=== PATIENT | male | born 1940 | race Hispanic/Latino ===

== ENCOUNTER 2021-07-15 11:39 | Inpatient (IN) | payer MEDICARE ==
[~2021-07-15] VITALS: Ht 167.6 cm; Wt 88.9 kg
[2021-07-15] MEDS ORDERED: SODIUM CHLORIDE 0.9% 1000ML 1,000 ML IV STA (12:09)
[2021-07-15] MEDS ORDERED: DEXAMETHASONE SOD PHOS 10 MG/1 ML VIAL IV ONE (12:15)
[2021-07-15] MEDS ORDERED: CEFTRIAXONE 1 GM in SODIUM CHLORIDE 0.9% 50ML 50 ML IV ONE (12:15)
[2021-07-15 12:26] LABS: BASOPHILS % 0.2 % (0.0-1.0); LYMPHOCYTES # (AUTO) 0.4 (1.0-3.2); LYMPHOCYTES % 3.9 % (18.0-39.1); MEAN CORPUSCULAR HEMOGLOBIN 30.7 pg (28-32); MEAN CORPUSCULAR HGB CONC 33.3 g/dL (31-35); MEAN CORPUSCULAR VOLUME 92.2 fL (81-99); MONOCYTES # (AUTO) 0.4 (0.2-0.8); MONOCYTES % 4.4 % (4.4-11.3); NEUTROPHILS % 91.1 % (38.7-80.0); PLATELET COUNT 169 x10e3/uL (140-360); RED BLOOD COUNT 4.88 x10e6/uL (4.3-5.7); RED CELL DISTRIBUTION WIDTH 13.6 % (11.7-14.4)
[2021-07-15 12:57] LABS: ALBUMIN 3.3 g/dL (3.5-5.0); ALBUMIN/GLOBULIN RATIO 0.7 (0.8-2.0); ANION GAP 20.5 mmol/L (8-16); CALCIUM 8.9 mg/dL (8.4-10.2); CREATININE, SERUM 1.44 mg/dL (0.72-1.25); POTASSIUM 3.5 mmol/L (3.5-5.1)
[2021-07-15] MEDS ORDERED: WATER STERILE 10 ML VIAL ONE (13:14)
[2021-07-15] MEDS ORDERED: VECURONIUM BROMIDE FOR INJ 20 MG VIAL ONE (13:14)
[2021-07-15] MEDS ORDERED: SUCCINYLCHOLINE CHLORIDE 20 MG/ML 10ML VIAL ONE (13:14)
[2021-07-15] MEDS ORDERED: MIDAZOLAM HCL 2 MG/2 ML VIAL ONE (13:14)
[2021-07-15] MEDS: SODIUM CHLORIDE 0.9% 1000ML 1,000 ML IV SCH ×2 (14:40→14:49)
[2021-07-15 15:15] LABS: CLARITY,URINE SL CLOUDY (CLEAR); COLOR,URINE AMBER (YELLOW); LEUKOCYTE ESTERASE ,URINE NEGATIVE (NEGATIVE); NITRITE,URINE NEGATIVE (NEGATIVE); PROTEIN,URINE DIPSTICK NEGATIVE (NEGATIVE)
[2021-07-15 15:16] LABS: KETONES,URINE NEGATIVE (NEGATIVE); URINE UROBILINOGEN 1 mg/dL (0.2 - 1)
[2021-07-15 15:28] LABS: AMORPHOUS SEDIMENT,URINE FEW (FEW); BACTERIA,URINE MODERATE /HPF
[2021-07-15] MEDS ORDERED: REMDESIVIR 200MG 200 MG in SODIUM CHLORIDE 0.9% 100 ML IV ONE (15:30)
[2021-07-15] MEDS: ASCORBIC ACID 500 MG TAB PO SCH (17:06)
[2021-07-15] MEDS: ENOXAPARIN 30 MG/0.3 ML SYR SC SCH (17:06)
[2021-07-15 21:10] VITALS: BP 119/80
[2021-07-15 21:20] VITALS: BP 119/80
[2021-07-15 21:30] VITALS: BP 119/80
[2021-07-16] VITALS (15 sets, daily range): BP systolic 106–139; BP diastolic 68–86
[2021-07-16] MEDS ORDERED: LYRICA100 MG PO (00:05)
[2021-07-16] MEDS ORDERED: MULTI-VITAMIN1 EACH PO (00:05)
[2021-07-16] MEDS ORDERED: NAMENDA10 MG PO (00:05)
[2021-07-16] MEDS ORDERED: CO Q-1010 MG PO (00:05)
[2021-07-16] MEDS ORDERED: ASPIRIN81 MG PO (00:05)
[2021-07-16] MEDS ORDERED: FISH OIL 1,0001 EAC3 PO (00:05)
[2021-07-16] MEDS ORDERED: ATORVASTATIN CA20 MG PO (00:05)
[2021-07-16] MEDS ORDERED: NEURONTIN300 MG PO (00:05)
[2021-07-16] MEDS ORDERED: CETIRIZINE HCL10 MG PO (00:05)
[2021-07-16] MEDS ORDERED: ARICEPT10 MG PO (00:05)
[2021-07-16] MEDS: ENOXAPARIN 30 MG/0.3 ML SYR SC SCH ×2 (06:00→16:06)
[2021-07-16 06:48] LABS: BASOPHILS % 0.3 % (0.0-1.0); HEMATOCRIT 41.6 % (38.2-49.6); HEMOGLOBIN 13.8 g/dL (14.0-18.0); LYMPHOCYTES # (AUTO) 0.7 (1.0-3.2); LYMPHOCYTES % 6.2 % (18.0-39.1); MEAN CORPUSCULAR HEMOGLOBIN 30.3 pg (28-32); MEAN CORPUSCULAR HGB CONC 33.2 g/dL (31-35); MEAN CORPUSCULAR VOLUME 91.4 fL (81-99); MONOCYTES # (AUTO) 0.5 (0.2-0.8); MONOCYTES % 4.4 % (4.4-11.3); NEUTROPHILS # (AUTO) 10.6 (2.1-6.9); NEUTROPHILS % 88.6 % (38.7-80.0); PLATELET COUNT 181 x10e3/uL (140-360); RED BLOOD COUNT 4.55 x10e6/uL (4.3-5.7); RED CELL DISTRIBUTION WIDTH 13.6 % (11.7-14.4)
[2021-07-16 07:22] LABS: ANION GAP 16.8 mmol/L (8-16); CALCIUM 8.1 mg/dL (8.4-10.2); CREATININE, SERUM 0.83 mg/dL (0.72-1.25); POTASSIUM 3.8 mmol/L (3.5-5.1)
[2021-07-16] MEDS ORDERED: CEFTRIAXONE 2 GM in SODIUM CHLORIDE 0.9% 100 ML IV SCH (09:00)
[2021-07-16] MEDS: DEXAMETHASONE SOD PHOS 10 MG/1 ML VIAL IV SCH (10:01)
[2021-07-16] MEDS: DONEPEZIL HCL 5 MG TAB PO SCH ×2 (10:01→16:05)
[2021-07-16] MEDS: MULTIVITAMINS/MINERALS TAB PO SCH (10:01)
[2021-07-16] MEDS: ZINC SULFATE 50 MG CAP PO SCH (10:01)
[2021-07-16] MEDS: PREGABALIN 50 MG CAP PO SCH ×2 (10:01→16:05)
[2021-07-16] MEDS: ASCORBIC ACID 500 MG TAB PO SCH ×2 (10:01→16:06)
[2021-07-16 10:21] LABS: ALBUMIN 2.7 g/dL (3.5-5.0); ALBUMIN/GLOBULIN RATIO 0.7 (0.8-2.0); ANION GAP 15.9 mmol/L (8-16); CALCIUM 8.1 mg/dL (8.4-10.2); CREATININE, SERUM 0.85 mg/dL (0.72-1.25); POTASSIUM 3.9 mmol/L (3.5-5.1)
[2021-07-16] MEDS: ACETAMINOPHEN 325 MG TAB PO PRN (10:30)
[2021-07-16] MEDS ORDERED: BISMUTH SUBSALICYLATE 262 MG TAB PO PRN (14:00)
[2021-07-16] MEDS: REMDESIVIR 100MG 100 MG in SODIUM CHLORIDE 0.9% 100 ML IV SCH (16:00)
[2021-07-16] MEDS: GABAPENTIN 300 MG CAP PO SCH (16:06)
[2021-07-16] MEDS: TAMSULOSIN HCL 0.4 MG CAP PO SCH (21:00)
[2021-07-16] MEDS: MEMANTINE 10 MG TAB PO SCH (21:00)
[2021-07-16] MEDS: ATORVASTATIN 40 MG TAB PO SCH (21:00)
[2021-07-16] MEDS ORDERED: NON-FORMULARY MEDICATION (Cetirizine Hcl 1 TAB) PO SCH (21:00)
[2021-07-16] MEDS: LORATADINE 10 MG TAB PO SCH (21:00)
[2021-07-17] VITALS (25 sets, daily range): BP systolic 100–128; BP diastolic 66–86
[2021-07-17] MEDS: ENOXAPARIN 30 MG/0.3 ML SYR SC SCH ×2 (06:38→16:05)
[2021-07-17] MEDS: DEXAMETHASONE SOD PHOS 10 MG/1 ML VIAL IV SCH (08:27)
[2021-07-17] MEDS: PREGABALIN 50 MG CAP PO SCH ×2 (08:29→16:04)
[2021-07-17] MEDS: ASPIRIN 81 MG CHEW TAB PO SCH (08:29)
[2021-07-17] MEDS: DONEPEZIL HCL 5 MG TAB PO SCH ×2 (08:29→16:04)
[2021-07-17] MEDS: GABAPENTIN 300 MG CAP PO SCH ×2 (08:30→16:05)
[2021-07-17] MEDS: MULTIVITAMINS/MINERALS TAB PO SCH (08:30)
[2021-07-17] MEDS: ZINC SULFATE 50 MG CAP PO SCH (08:31)
[2021-07-17] MEDS: ASCORBIC ACID 500 MG TAB PO SCH ×2 (08:31→16:05)
[2021-07-17 09:52] LABS: BASOPHILS % 0.2 % (0.0-1.0); HEMATOCRIT 38.4 % (38.2-49.6); HEMOGLOBIN 12.7 g/dL (14.0-18.0); LYMPHOCYTES # (AUTO) 0.6 (1.0-3.2); LYMPHOCYTES % 5.3 % (18.0-39.1); MEAN CORPUSCULAR HEMOGLOBIN 30.5 pg (28-32); MEAN CORPUSCULAR HGB CONC 33.1 g/dL (31-35); MEAN CORPUSCULAR VOLUME 92.1 fL (81-99); MONOCYTES # (AUTO) 0.3 (0.2-0.8); NEUTROPHILS # (AUTO) 9.6 (2.1-6.9); PLATELET COUNT 194 x10e3/uL (140-360); RED BLOOD COUNT 4.17 x10e6/uL (4.3-5.7); RED CELL DISTRIBUTION WIDTH 13.7 % (11.7-14.4)
[2021-07-17] MEDS: CEFTRIAXONE 2 GM in SODIUM CHLORIDE 0.9% 100 ML IV SCH (10:05)
[2021-07-17 10:06] LABS: ALBUMIN 2.1 g/dL (3.5-5.0); ALBUMIN/GLOBULIN RATIO 0.7 (0.8-2.0); ANION GAP 14.9 mmol/L (8-16); CREATININE, SERUM 0.7 mg/dL (0.72-1.25)
[2021-07-17 10:21] LABS: CALCIUM 6.9 mg/dL (8.4-10.2); POTASSIUM 2.9 mmol/L (3.5-5.1)
[2021-07-17] MEDS ORDERED: POTASSIUM CHLORIDE 20MEQ/100ML 200 ML IV ONE (10:45)
[2021-07-17] MEDS: REMDESIVIR 100MG 100 MG in SODIUM CHLORIDE 0.9% 100 ML IV SCH (13:45)
[2021-07-17] MEDS: ATORVASTATIN 40 MG TAB PO SCH (20:59)
[2021-07-17] MEDS: TAMSULOSIN HCL 0.4 MG CAP PO SCH (20:59)
[2021-07-17] MEDS: MEMANTINE 10 MG TAB PO SCH (20:59)
[2021-07-17] MEDS: LORATADINE 10 MG TAB PO SCH (20:59)
[2021-07-18] VITALS (24 sets, daily range): BP systolic 104–158; BP diastolic 41–115
[2021-07-18] MEDS: ENOXAPARIN 30 MG/0.3 ML SYR SC SCH ×2 (05:32→17:51)
[2021-07-18 06:32] LABS: BASOPHILS % 0.1 % (0.0-1.0); HEMATOCRIT 41.4 % (38.2-49.6); HEMOGLOBIN 13.4 g/dL (14.0-18.0); LYMPHOCYTES # (AUTO) 0.8 (1.0-3.2); LYMPHOCYTES % 7.5 % (18.0-39.1); MEAN CORPUSCULAR HEMOGLOBIN 29.9 pg (28-32); MEAN CORPUSCULAR HGB CONC 32.4 g/dL (31-35); MEAN CORPUSCULAR VOLUME 92.4 fL (81-99); MONOCYTES # (AUTO) 0.7 (0.2-0.8); NEUTROPHILS # (AUTO) 9.4 (2.1-6.9); NEUTROPHILS % 85.9 % (38.7-80.0); PLATELET COUNT 226 x10e3/uL (140-360); RED BLOOD COUNT 4.48 x10e6/uL (4.3-5.7); RED CELL DISTRIBUTION WIDTH 13.8 % (11.7-14.4)
[2021-07-18 06:43] LABS: ALBUMIN 2.5 g/dL (3.5-5.0); ALBUMIN/GLOBULIN RATIO 0.7 (0.8-2.0); ANION GAP 14.6 mmol/L (8-16); CALCIUM 7.8 mg/dL (8.4-10.2); CREATININE, SERUM 0.72 mg/dL (0.72-1.25); POTASSIUM 3.6 mmol/L (3.5-5.1)
[2021-07-18] MEDS: DEXAMETHASONE SOD PHOS 10 MG/1 ML VIAL IV SCH (08:12)
[2021-07-18] MEDS: ASCORBIC ACID 500 MG TAB PO SCH ×2 (08:13→16:01)
[2021-07-18] MEDS: MULTIVITAMINS/MINERALS TAB PO SCH (08:13)
[2021-07-18] MEDS: ASPIRIN 81 MG CHEW TAB PO SCH (08:13)
[2021-07-18] MEDS: DONEPEZIL HCL 5 MG TAB PO SCH ×2 (08:13→16:01)
[2021-07-18] MEDS: ZINC SULFATE 50 MG CAP PO SCH (08:13)
[2021-07-18] MEDS: PREGABALIN 50 MG CAP PO SCH ×2 (08:13→16:01)
[2021-07-18] MEDS: ACETAMINOPHEN 325 MG TAB PO PRN (08:16)
[2021-07-18] MEDS: GABAPENTIN 300 MG CAP PO SCH ×2 (08:22→16:01)
[2021-07-18] MEDS: BENZONATATE 100 MG CAP PO SCH ×2 (09:43→17:51)
[2021-07-18] MEDS: GUAIFENESIN/CODEINE 5 ML LIQD PO PRN ×2 (09:43→20:48)
[2021-07-18] MEDS: CEFTRIAXONE 2 GM in SODIUM CHLORIDE 0.9% 100 ML IV SCH (09:57)
[2021-07-18] MEDS: REMDESIVIR 100MG 100 MG in SODIUM CHLORIDE 0.9% 100 ML IV SCH (13:33)
[2021-07-18] MEDS: MEMANTINE 10 MG TAB PO SCH (20:48)
[2021-07-18] MEDS: LORATADINE 10 MG TAB PO SCH (20:48)
[2021-07-18] MEDS: ATORVASTATIN 40 MG TAB PO SCH (20:48)
[2021-07-18] MEDS: TAMSULOSIN HCL 0.4 MG CAP PO SCH (20:48)
[2021-07-19] VITALS (23 sets, daily range): BP systolic 114–147; BP diastolic 46–90
[2021-07-19] MEDS: GUAIFENESIN/CODEINE 5 ML LIQD PO PRN ×2 (05:00→21:14)
[2021-07-19] MEDS: ENOXAPARIN 30 MG/0.3 ML SYR SC SCH ×2 (05:49→17:47)
[2021-07-19] MEDS: BENZONATATE 100 MG CAP PO SCH ×4 (05:49→17:47)
[2021-07-19 06:10] LABS: BASOPHILS % 0.2 % (0.0-1.0); EOSINOPHILS % 0.1 % (0.0-6.0); HEMATOCRIT 42.4 % (38.2-49.6); HEMOGLOBIN 13.9 g/dL (14.0-18.0); LYMPHOCYTES # (AUTO) 0.7 (1.0-3.2); LYMPHOCYTES % 6.3 % (18.0-39.1); MEAN CORPUSCULAR HEMOGLOBIN 30.2 pg (28-32); MEAN CORPUSCULAR HGB CONC 32.8 g/dL (31-35); MONOCYTES # (AUTO) 0.7 (0.2-0.8); NEUTROPHILS # (AUTO) 9.3 (2.1-6.9); NEUTROPHILS % 86.5 % (38.7-80.0); PLATELET COUNT 239 x10e3/uL (140-360); RED BLOOD COUNT 4.61 x10e6/uL (4.3-5.7); RED CELL DISTRIBUTION WIDTH 13.7 % (11.7-14.4)
[2021-07-19 06:36] LABS: ALBUMIN 2.5 g/dL (3.5-5.0); ALBUMIN/GLOBULIN RATIO 0.7 (0.8-2.0); ANION GAP 14.6 mmol/L (8-16); CALCIUM 7.8 mg/dL (8.4-10.2); CREATININE, SERUM 0.68 mg/dL (0.72-1.25); POTASSIUM 3.6 mmol/L (3.5-5.1)
[2021-07-19] MEDS: DEXAMETHASONE SOD PHOS 10 MG/1 ML VIAL IV SCH (08:09)
[2021-07-19] MEDS: ASPIRIN 81 MG CHEW TAB PO SCH (08:09)
[2021-07-19] MEDS: DONEPEZIL HCL 5 MG TAB PO SCH ×2 (08:09→17:47)
[2021-07-19] MEDS: MULTIVITAMINS/MINERALS TAB PO SCH (08:10)
[2021-07-19] MEDS: ZINC SULFATE 50 MG CAP PO SCH (08:10)
[2021-07-19] MEDS: PREGABALIN 50 MG CAP PO SCH ×2 (08:10→17:46)
[2021-07-19] MEDS: GABAPENTIN 300 MG CAP PO SCH ×2 (08:10→17:47)
[2021-07-19] MEDS: ASCORBIC ACID 500 MG TAB PO SCH ×2 (08:10→17:47)
[2021-07-19] MEDS: ACETAMINOPHEN 325 MG TAB PO PRN ×2 (08:47→18:49)
[2021-07-19] MEDS: CEFTRIAXONE 2 GM in SODIUM CHLORIDE 0.9% 100 ML IV SCH (11:19)
[2021-07-19] MEDS: REMDESIVIR 100MG 100 MG in SODIUM CHLORIDE 0.9% 100 ML IV SCH (13:24)
[2021-07-19] MEDS: MEMANTINE 10 MG TAB PO SCH (21:14)
[2021-07-19] MEDS: LORATADINE 10 MG TAB PO SCH (21:14)
[2021-07-19] MEDS: TAMSULOSIN HCL 0.4 MG CAP PO SCH (21:14)
[2021-07-19] MEDS: ATORVASTATIN 40 MG TAB PO SCH (21:14)
[2021-07-20] VITALS (20 sets, daily range): BP systolic 99–129; BP diastolic 2–84
[2021-07-20] MEDS: GUAIFENESIN/CODEINE 5 ML LIQD PO PRN (03:05)
[2021-07-20] MEDS: ACETAMINOPHEN 325 MG TAB PO PRN ×3 (03:05→23:44)
[2021-07-20] MEDS: BENZONATATE 100 MG CAP PO SCH ×5 (06:00→23:45)
[2021-07-20] MEDS: ENOXAPARIN 30 MG/0.3 ML SYR SC SCH ×2 (06:00→17:27)
[2021-07-20] MEDS: DONEPEZIL HCL 5 MG TAB PO SCH ×2 (08:09→17:27)
[2021-07-20] MEDS: ASCORBIC ACID 500 MG TAB PO SCH ×2 (08:09→17:27)
[2021-07-20] MEDS: ASPIRIN 81 MG CHEW TAB PO SCH (08:09)
[2021-07-20] MEDS: DEXAMETHASONE SOD PHOS 10 MG/1 ML VIAL IV SCH (08:09)
[2021-07-20] MEDS: PREGABALIN 50 MG CAP PO SCH ×2 (08:09→17:27)
[2021-07-20] MEDS: GABAPENTIN 300 MG CAP PO SCH ×2 (08:09→17:27)
[2021-07-20] MEDS: MULTIVITAMINS/MINERALS TAB PO SCH (08:09)
[2021-07-20] MEDS: ZINC SULFATE 50 MG CAP PO SCH (08:10)
[2021-07-20 09:47] LABS: BASOPHILS % 0.2 % (0.0-1.0); EOSINOPHILS % 0.3 % (0.0-6.0); HEMATOCRIT 42.1 % (38.2-49.6); LYMPHOCYTES # (AUTO) 0.6 (1.0-3.2); MEAN CORPUSCULAR HEMOGLOBIN 30.4 pg (28-32); MEAN CORPUSCULAR HGB CONC 33.3 g/dL (31-35); MEAN CORPUSCULAR VOLUME 91.5 fL (81-99); MONOCYTES # (AUTO) 0.6 (0.2-0.8); NEUTROPHILS # (AUTO) 10.3 (2.1-6.9); PLATELET COUNT 279 x10e3/uL (140-360); RED CELL DISTRIBUTION WIDTH 13.7 % (11.7-14.4)
[2021-07-20] MEDS: CEFTRIAXONE 2 GM in SODIUM CHLORIDE 0.9% 100 ML IV SCH (10:00)
[2021-07-20 10:12] LABS: ALBUMIN 2.2 g/dL (3.5-5.0); ALBUMIN/GLOBULIN RATIO 0.7 (0.8-2.0); ANION GAP 14.2 mmol/L (8-16); CALCIUM 7.1 mg/dL (8.4-10.2); CREATININE, SERUM 0.62 mg/dL (0.72-1.25); POTASSIUM 3.2 mmol/L (3.5-5.1)
[2021-07-20] MEDS: TAMSULOSIN HCL 0.4 MG CAP PO SCH (20:39)
[2021-07-20] MEDS: MEMANTINE 10 MG TAB PO SCH (20:39)
[2021-07-20] MEDS: ATORVASTATIN 40 MG TAB PO SCH (20:39)
[2021-07-20] MEDS: LORATADINE 10 MG TAB PO SCH (20:39)
[2021-07-21] VITALS (8 sets, daily range): BP systolic 103–138; BP diastolic 66–80
[2021-07-21] MEDS: BENZONATATE 100 MG CAP PO SCH ×3 (05:45→22:20)
[2021-07-21] MEDS: ENOXAPARIN 30 MG/0.3 ML SYR SC SCH ×2 (05:45→18:22)
[2021-07-21 07:15] LABS: BASOPHILS % 0.1 % (0.0-1.0); EOSINOPHILS # (AUTO) 0.1 (0.0-0.4); EOSINOPHILS % 0.6 % (0.0-6.0); HEMATOCRIT 43.9 % (38.2-49.6); HEMOGLOBIN 14.6 g/dL (14.0-18.0); LYMPHOCYTES # (AUTO) 0.7 (1.0-3.2); LYMPHOCYTES % 5.1 % (18.0-39.1); MEAN CORPUSCULAR HGB CONC 33.3 g/dL (31-35); MEAN CORPUSCULAR VOLUME 90.1 fL (81-99); MONOCYTES # (AUTO) 0.5 (0.2-0.8); MONOCYTES % 3.5 % (4.4-11.3); NEUTROPHILS # (AUTO) 12.6 (2.1-6.9); NEUTROPHILS % 88.9 % (38.7-80.0); PLATELET COUNT 320 x10e3/uL (140-360); RED BLOOD COUNT 4.87 x10e6/uL (4.3-5.7); RED CELL DISTRIBUTION WIDTH 13.9 % (11.7-14.4)
[2021-07-21 07:40] LABS: ALBUMIN 2.4 g/dL (3.5-5.0); ALBUMIN/GLOBULIN RATIO 0.6 (0.8-2.0); ANION GAP 11.6 mmol/L (8-16); CALCIUM 7.8 mg/dL (8.4-10.2); CREATININE, SERUM 0.67 mg/dL (0.72-1.25); POTASSIUM 3.6 mmol/L (3.5-5.1)
[2021-07-21] MEDS: GUAIFENESIN/CODEINE 5 ML LIQD PO PRN (09:24)
[2021-07-21] MEDS: ASPIRIN 81 MG CHEW TAB PO SCH (09:24)
[2021-07-21] MEDS: ZINC SULFATE 50 MG CAP PO SCH (09:24)
[2021-07-21] MEDS: ASCORBIC ACID 500 MG TAB PO SCH ×2 (09:24→18:22)
[2021-07-21] MEDS: MULTIVITAMINS/MINERALS TAB PO SCH (09:24)
[2021-07-21] MEDS: CEFTRIAXONE 2 GM in SODIUM CHLORIDE 0.9% 100 ML IV SCH (09:24)
[2021-07-21] MEDS: GABAPENTIN 300 MG CAP PO SCH ×2 (09:24→18:22)
[2021-07-21] MEDS: DEXAMETHASONE SOD PHOS 10 MG/1 ML VIAL IV SCH (09:24)
[2021-07-21] MEDS: PREGABALIN 50 MG CAP PO SCH ×2 (09:24→18:22)
[2021-07-21] MEDS: DONEPEZIL HCL 5 MG TAB PO SCH ×2 (09:24→18:22)
[2021-07-21] MEDS: ACETAMINOPHEN 325 MG TAB PO PRN ×2 (09:25→20:00)
[2021-07-21] MEDS: TAMSULOSIN HCL 0.4 MG CAP PO SCH (20:00)
[2021-07-21] MEDS: MEMANTINE 10 MG TAB PO SCH (20:01)
[2021-07-21] MEDS: LORATADINE 10 MG TAB PO SCH (20:01)
[2021-07-21] MEDS: ATORVASTATIN 40 MG TAB PO SCH (20:01)
[2021-07-22] VITALS (11 sets, daily range): BP systolic 118–141; BP diastolic 75–89
[2021-07-22] MEDS: ACETAMINOPHEN 325 MG TAB PO PRN (05:05)
[2021-07-22] MEDS: BENZONATATE 100 MG CAP PO SCH ×3 (06:07→21:05)
[2021-07-22] MEDS: ENOXAPARIN 30 MG/0.3 ML SYR SC SCH ×2 (06:07→16:58)
[2021-07-22 06:40] LABS: BASOPHILS % 0.1 % (0.0-1.0); EOSINOPHILS % 0.1 % (0.0-6.0); HEMATOCRIT 43.2 % (38.2-49.6); HEMOGLOBIN 14.3 g/dL (14.0-18.0); LYMPHOCYTES # (AUTO) 0.6 (1.0-3.2); LYMPHOCYTES % 4.4 % (18.0-39.1); MEAN CORPUSCULAR HEMOGLOBIN 30.2 pg (28-32); MEAN CORPUSCULAR HGB CONC 33.1 g/dL (31-35); MEAN CORPUSCULAR VOLUME 91.1 fL (81-99); MONOCYTES # (AUTO) 0.5 (0.2-0.8); MONOCYTES % 3.5 % (4.4-11.3); NEUTROPHILS # (AUTO) 12.9 (2.1-6.9); NEUTROPHILS % 90.2 % (38.7-80.0); PLATELET COUNT 339 x10e3/uL (140-360); RED BLOOD COUNT 4.74 x10e6/uL (4.3-5.7); RED CELL DISTRIBUTION WIDTH 13.8 % (11.7-14.4)
[2021-07-22 07:01] LABS: ALBUMIN 2.3 g/dL (3.5-5.0); ALBUMIN/GLOBULIN RATIO 0.6 (0.8-2.0); ANION GAP 12.8 mmol/L (8-16); CREATININE, SERUM 0.72 mg/dL (0.72-1.25); POTASSIUM 3.8 mmol/L (3.5-5.1)
[2021-07-22] MEDS: ASCORBIC ACID 500 MG TAB PO SCH ×2 (08:22→16:58)
[2021-07-22] MEDS: ZINC SULFATE 50 MG CAP PO SCH (08:22)
[2021-07-22] MEDS: ASPIRIN 81 MG CHEW TAB PO SCH (08:22)
[2021-07-22] MEDS: DEXAMETHASONE SOD PHOS 10 MG/1 ML VIAL IV SCH (08:22)
[2021-07-22] MEDS: MULTIVITAMINS/MINERALS TAB PO SCH (08:22)
[2021-07-22] MEDS: GABAPENTIN 300 MG CAP PO SCH ×2 (08:22→16:58)
[2021-07-22] MEDS: PREGABALIN 50 MG CAP PO SCH ×2 (08:22→16:58)
[2021-07-22] MEDS: DONEPEZIL HCL 5 MG TAB PO SCH ×2 (08:22→16:58)
[2021-07-22] MEDS: GUAIFENESIN/CODEINE 5 ML LIQD PO PRN (08:23)
[2021-07-22] MEDS: LORATADINE 10 MG TAB PO SCH (21:04)
[2021-07-22] MEDS: TAMSULOSIN HCL 0.4 MG CAP PO SCH (21:04)
[2021-07-22] MEDS: ATORVASTATIN 40 MG TAB PO SCH (21:04)
[2021-07-22] MEDS: MEMANTINE 10 MG TAB PO SCH (21:05)
[2021-07-23] VITALS (10 sets, daily range): BP systolic 112–137; BP diastolic 63–86
[2021-07-23] MEDS: ENOXAPARIN 30 MG/0.3 ML SYR SC SCH ×2 (05:40→17:46)
[2021-07-23] MEDS: BENZONATATE 100 MG CAP PO SCH ×3 (05:40→20:39)
[2021-07-23] MEDS: ACETAMINOPHEN 325 MG TAB PO PRN ×3 (05:41→18:10)
[2021-07-23 06:40] LABS: BASOPHILS % 0.2 % (0.0-1.0); EOSINOPHILS % 0.1 % (0.0-6.0); HEMATOCRIT 45.3 % (38.2-49.6); LYMPHOCYTES # (AUTO) 0.6 (1.0-3.2); LYMPHOCYTES % 3.9 % (18.0-39.1); MEAN CORPUSCULAR HEMOGLOBIN 30.3 pg (28-32); MEAN CORPUSCULAR HGB CONC 33.1 g/dL (31-35); MEAN CORPUSCULAR VOLUME 91.5 fL (81-99); MONOCYTES # (AUTO) 0.5 (0.2-0.8); NEUTROPHILS # (AUTO) 14.8 (2.1-6.9); NEUTROPHILS % 91.4 % (38.7-80.0); PLATELET COUNT 340 x10e3/uL (140-360); RED BLOOD COUNT 4.95 x10e6/uL (4.3-5.7); RED CELL DISTRIBUTION WIDTH 13.9 % (11.7-14.4)
[2021-07-23 07:02] LABS: ALBUMIN 2.4 g/dL (3.5-5.0); ALBUMIN/GLOBULIN RATIO 0.6 (0.8-2.0); ANION GAP 12.8 mmol/L (8-16); CALCIUM 8.2 mg/dL (8.4-10.2); CREATININE, SERUM 0.73 mg/dL (0.72-1.25); POTASSIUM 3.8 mmol/L (3.5-5.1)
[2021-07-23] MEDS: DEXAMETHASONE SOD PHOS 10 MG/1 ML VIAL IV SCH (09:31)
[2021-07-23] MEDS: ASPIRIN 81 MG CHEW TAB PO SCH (09:31)
[2021-07-23] MEDS: DONEPEZIL HCL 5 MG TAB PO SCH ×2 (09:31→17:46)
[2021-07-23] MEDS: MULTIVITAMINS/MINERALS TAB PO SCH (09:32)
[2021-07-23] MEDS: PREGABALIN 50 MG CAP PO SCH ×2 (09:32→17:46)
[2021-07-23] MEDS: ZINC SULFATE 50 MG CAP PO SCH (09:32)
[2021-07-23] MEDS: GABAPENTIN 300 MG CAP PO SCH ×2 (09:32→17:45)
[2021-07-23] MEDS: ASCORBIC ACID 500 MG TAB PO SCH ×2 (09:32→17:44)
[2021-07-23] MEDS: GUAIFENESIN/CODEINE 5 ML LIQD PO PRN (09:48)
[2021-07-23] MEDS: LORATADINE 10 MG TAB PO SCH (20:39)
[2021-07-23] MEDS: MEMANTINE 10 MG TAB PO SCH (20:39)
[2021-07-23] MEDS: TAMSULOSIN HCL 0.4 MG CAP PO SCH (20:39)
[2021-07-23] MEDS: ATORVASTATIN 40 MG TAB PO SCH (20:39)
[2021-07-24] VITALS (19 sets, daily range): BP systolic 105–157; BP diastolic 7–102
[2021-07-24] MEDS: ACETAMINOPHEN 325 MG TAB PO PRN ×3 (00:53→21:09)
[2021-07-24] MEDS: ENOXAPARIN 30 MG/0.3 ML SYR SC SCH ×2 (06:35→17:04)
[2021-07-24] MEDS: BENZONATATE 100 MG CAP PO SCH ×3 (06:35→21:09)
[2021-07-24] MEDS: GUAIFENESIN/CODEINE 5 ML LIQD PO PRN ×2 (07:26→15:00)
[2021-07-24] MEDS: GABAPENTIN 300 MG CAP PO SCH ×2 (08:34→17:04)
[2021-07-24] MEDS: ZINC SULFATE 50 MG CAP PO SCH (08:34)
[2021-07-24] MEDS: PREGABALIN 50 MG CAP PO SCH (08:34)
[2021-07-24] MEDS: ASPIRIN 81 MG CHEW TAB PO SCH (08:34)
[2021-07-24] MEDS: ASCORBIC ACID 500 MG TAB PO SCH ×2 (08:34→17:04)
[2021-07-24] MEDS: MULTIVITAMINS/MINERALS TAB PO SCH (08:34)
[2021-07-24] MEDS: DEXAMETHASONE SOD PHOS 10 MG/1 ML VIAL IV SCH (08:34)
[2021-07-24] MEDS: DONEPEZIL HCL 5 MG TAB PO SCH ×2 (08:34→17:04)
[2021-07-24 09:16] LABS: BASOPHILS % 0.1 % (0.0-1.0); EOSINOPHILS % 0.2 % (0.0-6.0); HEMATOCRIT 47.1 % (38.2-49.6); HEMOGLOBIN 15.2 g/dL (14.0-18.0); LYMPHOCYTES # (AUTO) 0.6 (1.0-3.2); LYMPHOCYTES % 3.4 % (18.0-39.1); MEAN CORPUSCULAR HEMOGLOBIN 30.1 pg (28-32); MEAN CORPUSCULAR HGB CONC 32.3 g/dL (31-35); MEAN CORPUSCULAR VOLUME 93.3 fL (81-99); MONOCYTES # (AUTO) 0.3 (0.2-0.8); NEUTROPHILS # (AUTO) 15.5 (2.1-6.9); NEUTROPHILS % 93.2 % (38.7-80.0); PLATELET COUNT 346 x10e3/uL (140-360); RED BLOOD COUNT 5.05 x10e6/uL (4.3-5.7); RED CELL DISTRIBUTION WIDTH 14.2 % (11.7-14.4)
[2021-07-24 12:18] LABS: CALCIUM 8.1 mg/dL (8.4-10.2); CREATININE, SERUM 0.71 mg/dL (0.72-1.25)
[2021-07-24] MEDS: TAMSULOSIN HCL 0.4 MG CAP PO SCH (21:09)
[2021-07-24] MEDS: MEMANTINE 10 MG TAB PO SCH (21:09)
[2021-07-24] MEDS: LORATADINE 10 MG TAB PO SCH (21:09)
[2021-07-25] VITALS (26 sets, daily range): BP systolic 111–136; BP diastolic 75–104
[2021-07-25] MEDS: GUAIFENESIN/CODEINE 5 ML LIQD PO PRN ×2 (00:05→05:09)
[2021-07-25] MEDS: BENZONATATE 100 MG CAP PO SCH ×3 (05:09→21:40)
[2021-07-25] MEDS: ENOXAPARIN 30 MG/0.3 ML SYR SC SCH ×2 (05:09→17:20)
[2021-07-25 05:58] LABS: BASOPHILS % 0.2 % (0.0-1.0); EOSINOPHILS % 0.1 % (0.0-6.0); HEMATOCRIT 48.2 % (38.2-49.6); HEMOGLOBIN 16.3 g/dL (14.0-18.0); LYMPHOCYTES # (AUTO) 0.7 (1.0-3.2); LYMPHOCYTES % 3.4 % (18.0-39.1); MEAN CORPUSCULAR HEMOGLOBIN 30.7 pg (28-32); MEAN CORPUSCULAR HGB CONC 33.8 g/dL (31-35); MEAN CORPUSCULAR VOLUME 90.8 fL (81-99); MONOCYTES # (AUTO) 0.4 (0.2-0.8); MONOCYTES % 2.1 % (4.4-11.3); NEUTROPHILS # (AUTO) 19.1 (2.1-6.9); NEUTROPHILS % 93.1 % (38.7-80.0); PLATELET COUNT 346 x10e3/uL (140-360); RED BLOOD COUNT 5.31 x10e6/uL (4.3-5.7)
[2021-07-25 06:24] LABS: ALBUMIN 2.3 g/dL (3.5-5.0); ALBUMIN/GLOBULIN RATIO 0.5 (0.8-2.0); CALCIUM 8.7 mg/dL (8.4-10.2); CREATININE, SERUM 0.72 mg/dL (0.72-1.25)
[2021-07-25] MEDS: DEXAMETHASONE SOD PHOS 10 MG/1 ML VIAL IV SCH (08:22)
[2021-07-25] MEDS: ASPIRIN 81 MG CHEW TAB PO SCH (08:23)
[2021-07-25] MEDS: ASCORBIC ACID 500 MG TAB PO SCH ×2 (08:23→17:20)
[2021-07-25] MEDS: MULTIVITAMINS/MINERALS TAB PO SCH (08:23)
[2021-07-25] MEDS: DONEPEZIL HCL 5 MG TAB PO SCH ×2 (08:23→17:20)
[2021-07-25] MEDS: ZINC SULFATE 50 MG CAP PO SCH (08:23)
[2021-07-25] MEDS: GABAPENTIN 300 MG CAP PO SCH ×2 (08:23→17:20)
[2021-07-25] MEDS: PIPERACILLIN/TAZOBACTAM 3.375 GM in SODIUM CHLORIDE 0.9% 50ML 50 ML IV SCH ×2 (11:56→17:20)
[2021-07-25] MEDS: ACETAMINOPHEN 325 MG TAB PO PRN ×2 (11:57→20:44)
[2021-07-25] MEDS: LORATADINE 10 MG TAB PO SCH (20:29)
[2021-07-25] MEDS: MEMANTINE 10 MG TAB PO SCH (20:29)
[2021-07-25] MEDS: TAMSULOSIN HCL 0.4 MG CAP PO SCH (20:29)
[2021-07-26] VITALS (26 sets, daily range): BP systolic 77–131; BP diastolic 54–105
[2021-07-26] MEDS: PIPERACILLIN/TAZOBACTAM 3.375 GM in SODIUM CHLORIDE 0.9% 50ML 50 ML IV SCH ×5 (00:15→23:37)
[2021-07-26] MEDS: GUAIFENESIN/CODEINE 5 ML LIQD PO PRN ×3 (00:15→21:26)
[2021-07-26] MEDS: ENOXAPARIN 30 MG/0.3 ML SYR SC SCH ×2 (05:33→17:11)
[2021-07-26] MEDS: BENZONATATE 100 MG CAP PO SCH ×3 (05:33→21:26)
[2021-07-26] MEDS: MULTIVITAMINS/MINERALS TAB PO SCH (09:59)
[2021-07-26] MEDS: ASPIRIN 81 MG CHEW TAB PO SCH (09:59)
[2021-07-26] MEDS: DONEPEZIL HCL 5 MG TAB PO SCH ×2 (09:59→17:00)
[2021-07-26] MEDS: ZINC SULFATE 50 MG CAP PO SCH (09:59)
[2021-07-26] MEDS: ASCORBIC ACID 500 MG TAB PO SCH ×2 (09:59→17:00)
[2021-07-26] MEDS: ACETAMINOPHEN 325 MG TAB PO PRN ×2 (13:45→21:26)
[2021-07-26] MEDS: DEXMEDETOMIDINE 400MCG/NS100ML 100 ML IV PRN ×2 (14:00→23:37)
[2021-07-26] MEDS: GABAPENTIN 300 MG CAP PO SCH (17:00)
[2021-07-26] MEDS ORDERED: ALBUMIN 25% 25GM 100ML 0.25 GM/ML BTL IV ONE (17:45)
[2021-07-26] MEDS ORDERED: ALBUMIN 25% 25GM 100ML 200 ML IV ONE (18:00)
[2021-07-26] MEDS: TAMSULOSIN HCL 0.4 MG CAP PO SCH (21:26)
[2021-07-26] MEDS: LORATADINE 10 MG TAB PO SCH (21:26)
[2021-07-26] MEDS: MEMANTINE 10 MG TAB PO SCH (21:26)
[2021-07-27] VITALS (27 sets, daily range): BP systolic 83–143; BP diastolic 61–110
[2021-07-27] MEDS: BENZONATATE 100 MG CAP PO SCH ×3 (06:00→21:40)
[2021-07-27 06:08] LABS: BASOPHILS % 0.1 % (0.0-1.0); EOSINOPHILS # (AUTO) 0.1 (0.0-0.4); EOSINOPHILS % 0.4 % (0.0-6.0); HEMATOCRIT 46.5 % (38.2-49.6); LYMPHOCYTES # (AUTO) 0.5 (1.0-3.2); LYMPHOCYTES % 2.7 % (18.0-39.1); MEAN CORPUSCULAR HEMOGLOBIN 30.1 pg (28-32); MEAN CORPUSCULAR HGB CONC 32.3 g/dL (31-35); MEAN CORPUSCULAR VOLUME 93.4 fL (81-99); MONOCYTES # (AUTO) 0.4 (0.2-0.8); MONOCYTES % 2.1 % (4.4-11.3); NEUTROPHILS # (AUTO) 16.6 (2.1-6.9); NEUTROPHILS % 94.1 % (38.7-80.0); PLATELET COUNT 275 x10e3/uL (140-360); RED BLOOD COUNT 4.98 x10e6/uL (4.3-5.7); RED CELL DISTRIBUTION WIDTH 14.2 % (11.7-14.4)
[2021-07-27] MEDS: ENOXAPARIN 30 MG/0.3 ML SYR SC SCH ×2 (06:34→20:36)
[2021-07-27] MEDS: PIPERACILLIN/TAZOBACTAM 3.375 GM in SODIUM CHLORIDE 0.9% 50ML 50 ML IV SCH ×4 (06:34→23:19)
[2021-07-27 06:40] LABS: ALBUMIN 2.7 g/dL (3.5-5.0); ALBUMIN/GLOBULIN RATIO 0.7 (0.8-2.0); ANION GAP 16.7 mmol/L (8-16); CALCIUM 8.3 mg/dL (8.4-10.2); CREATININE, SERUM 0.72 mg/dL (0.72-1.25); POTASSIUM 3.7 mmol/L (3.5-5.1)
[2021-07-27] MEDS ORDERED: LACTATED RINGER'S 1,000 ML INJ ONE (08:45)
[2021-07-27] MEDS: GUAIFENESIN/CODEINE 5 ML LIQD PO PRN (09:30)
[2021-07-27] MEDS: ZINC SULFATE 50 MG CAP PO SCH (09:58)
[2021-07-27] MEDS: ASPIRIN 81 MG CHEW TAB PO SCH (09:58)
[2021-07-27] MEDS: ASCORBIC ACID 500 MG TAB PO SCH ×2 (09:58→17:05)
[2021-07-27] MEDS: MULTIVITAMINS/MINERALS TAB PO SCH (09:58)
[2021-07-27] MEDS: GABAPENTIN 300 MG CAP PO SCH ×2 (09:58→17:05)
[2021-07-27] MEDS: DONEPEZIL HCL 5 MG TAB PO SCH ×2 (09:58→17:04)
[2021-07-27] MEDS: TAMSULOSIN HCL 0.4 MG CAP PO SCH (20:36)
[2021-07-27] MEDS: MEMANTINE 10 MG TAB PO SCH (20:36)
[2021-07-27] MEDS: LORATADINE 10 MG TAB PO SCH (20:36)
[2021-07-28] VITALS (26 sets, daily range): BP systolic 97–154; BP diastolic 72–97
[2021-07-28] MEDS: ENOXAPARIN 30 MG/0.3 ML SYR SC SCH ×2 (05:00→17:52)
[2021-07-28] MEDS: PIPERACILLIN/TAZOBACTAM 3.375 GM in SODIUM CHLORIDE 0.9% 50ML 50 ML IV SCH ×4 (05:00→23:50)
[2021-07-28] MEDS: BENZONATATE 100 MG CAP PO SCH ×3 (05:00→22:40)
[2021-07-28] MEDS: ACETAMINOPHEN 325 MG TAB PO PRN ×3 (05:03→17:30)
[2021-07-28] MEDS: GUAIFENESIN/CODEINE 5 ML LIQD PO PRN (05:03)
[2021-07-28] MEDS: ZINC SULFATE 50 MG CAP PO SCH (09:49)
[2021-07-28] MEDS: GABAPENTIN 300 MG CAP PO SCH ×2 (09:49→17:52)
[2021-07-28] MEDS: ASCORBIC ACID 500 MG TAB PO SCH ×2 (09:49→17:52)
[2021-07-28] MEDS: ASPIRIN 81 MG CHEW TAB PO SCH (09:49)
[2021-07-28] MEDS: DONEPEZIL HCL 5 MG TAB PO SCH ×2 (09:49→17:52)
[2021-07-28] MEDS: MULTIVITAMINS/MINERALS TAB PO SCH (09:49)
[2021-07-28] MEDS: DEXMEDETOMIDINE 400MCG/NS100ML 100 ML IV PRN (11:00)
[2021-07-28] MEDS: MEMANTINE 10 MG TAB PO SCH (21:06)
[2021-07-28] MEDS: LORATADINE 10 MG TAB PO SCH (21:06)
[2021-07-28] MEDS: TAMSULOSIN HCL 0.4 MG CAP PO SCH (21:06)
[2021-07-29] VITALS (27 sets, daily range): BP systolic 54–143; BP diastolic 45–121
[2021-07-29] MEDS: ACETAMINOPHEN 325 MG TAB PO PRN ×2 (00:34→08:05)
[2021-07-29 04:56] LABS: BASOPHILS % 0.1 % (0.0-1.0); EOSINOPHILS # (AUTO) 0.1 (0.0-0.4); EOSINOPHILS % 0.6 % (0.0-6.0); HEMATOCRIT 49.1 % (38.2-49.6); HEMOGLOBIN 15.9 g/dL (14.0-18.0); LYMPHOCYTES # (AUTO) 0.4 (1.0-3.2); LYMPHOCYTES % 2.4 % (18.0-39.1); MEAN CORPUSCULAR HEMOGLOBIN 29.9 pg (28-32); MEAN CORPUSCULAR HGB CONC 32.4 g/dL (31-35); MEAN CORPUSCULAR VOLUME 92.3 fL (81-99); MONOCYTES # (AUTO) 0.3 (0.2-0.8); NEUTROPHILS # (AUTO) 16.4 (2.1-6.9); NEUTROPHILS % 94.1 % (38.7-80.0); PLATELET COUNT 286 x10e3/uL (140-360); RED BLOOD COUNT 5.32 x10e6/uL (4.3-5.7); RED CELL DISTRIBUTION WIDTH 14.5 % (11.7-14.4)
[2021-07-29 05:33] LABS: ALBUMIN/GLOBULIN RATIO 0.5 (0.8-2.0); ANION GAP 17.2 mmol/L (8-16); CALCIUM 8.3 mg/dL (8.4-10.2); CREATININE, SERUM 0.73 mg/dL (0.72-1.25); POTASSIUM 3.2 mmol/L (3.5-5.1)
[2021-07-29] MEDS: PIPERACILLIN/TAZOBACTAM 3.375 GM in SODIUM CHLORIDE 0.9% 50ML 50 ML IV SCH ×3 (05:45→17:26)
[2021-07-29] MEDS: BENZONATATE 100 MG CAP PO SCH ×3 (05:45→21:40)
[2021-07-29] MEDS: ENOXAPARIN 30 MG/0.3 ML SYR SC SCH ×2 (05:45→17:26)
[2021-07-29 07:43] LABS: EOSINOPHILS % (MANUAL) 1 % (0-7); LYMPHOCYTES % (MANUAL) 2 % (19-48); NEUTROPHILS % (MANUAL) 97 % (40-74)
[2021-07-29 07:44] LABS: PLATELET ESTIMATE ADEQUATE; PLATELET MORPHOLOGY COMMENT NORMAL; RBC MORPHOLOGY COMMENT NORMAL
[2021-07-29] MEDS: DONEPEZIL HCL 5 MG TAB PO SCH ×2 (08:03→16:38)
[2021-07-29] MEDS: ASPIRIN 81 MG CHEW TAB PO SCH (08:03)
[2021-07-29] MEDS: ASCORBIC ACID 500 MG TAB PO SCH ×2 (08:04→16:38)
[2021-07-29] MEDS: GABAPENTIN 300 MG CAP PO SCH ×2 (08:04→16:38)
[2021-07-29] MEDS: MULTIVITAMINS/MINERALS TAB PO SCH (08:04)
[2021-07-29] MEDS: ZINC SULFATE 50 MG CAP PO SCH (08:04)
[2021-07-29] MEDS: ROCURONIUM 1250MG/NS 250 250 ML IV PRN (10:10)
[2021-07-29] MEDS: MIDAZOLAM HCL 5MG/ML 10ML VIAL 100 ML IV PRN ×2 (10:10→17:15)
[2021-07-29] MEDS: FENTANYL 2000MCG/NS 250 250 ML IV PRN ×2 (10:10→20:56)
[2021-07-29] MEDS ORDERED: LACTATED RINGER'S 1,000 ML ONE (10:19)
[2021-07-29] MEDS ORDERED: NOREPINEPHRINE 8 MG/D5W 250 ML 250 ML ONE (10:20)
[2021-07-29] MEDS ORDERED: LACTATED RINGER'S 500 ML INJ ONE (11:00)
[2021-07-29 12:00] LABS: ABG HCO3 28 mmol/L (22-26); ABG PCO2 51 mmHg (35-45); ABG PH 7.36 (7.35-7.45); ABG PO2 63 mmHg (80-105); ABG TCO2 30
[2021-07-29] MEDS ORDERED: POTASSIUM CHLORIDE 20MEQ/100ML 200 ML IV ONE (17:00)
[2021-07-29] MEDS: MEMANTINE 10 MG TAB PO SCH (21:40)
[2021-07-29] MEDS: TAMSULOSIN HCL 0.4 MG CAP PO SCH (21:40)
[2021-07-30] VITALS (26 sets, daily range): BP systolic 74–114; BP diastolic 61–80
[2021-07-30] MEDS ORDERED: AMIODARONE 900MG 500 ML IV ONE ×2 (00:15→00:20)
[2021-07-30] MEDS: AMIODARONE HCL 150 MG/100 ML BAG IV ONE ×2 (00:20→00:32)
[2021-07-30] MEDS ORDERED: AMIODARONE HCL 100 ML IV ONE (00:20)
[2021-07-30] MEDS: PIPERACILLIN/TAZOBACTAM 3.375 GM in SODIUM CHLORIDE 0.9% 50ML 50 ML IV SCH ×6 (00:45→23:15)
[2021-07-30 05:04] LABS: BASOPHILS % 0.1 % (0.0-1.0); EOSINOPHILS # (AUTO) 0.4 (0.0-0.4); EOSINOPHILS % 2.8 % (0.0-6.0); HEMATOCRIT 44.3 % (38.2-49.6); HEMOGLOBIN 13.8 g/dL (14.0-18.0); LYMPHOCYTES # (AUTO) 0.4 (1.0-3.2); LYMPHOCYTES % 3.1 % (18.0-39.1); MEAN CORPUSCULAR HEMOGLOBIN 29.8 pg (28-32); MEAN CORPUSCULAR HGB CONC 31.2 g/dL (31-35); MEAN CORPUSCULAR VOLUME 95.7 fL (81-99); MONOCYTES # (AUTO) 0.3 (0.2-0.8); NEUTROPHILS # (AUTO) 12.9 (2.1-6.9); NEUTROPHILS % 91.4 % (38.7-80.0); PLATELET COUNT 206 x10e3/uL (140-360); RED BLOOD COUNT 4.63 x10e6/uL (4.3-5.7); RED CELL DISTRIBUTION WIDTH 14.8 % (11.7-14.4)
[2021-07-30 05:27] LABS: ALBUMIN 1.6 g/dL (3.5-5.0); ALBUMIN/GLOBULIN RATIO 0.4 (0.8-2.0); ANION GAP 14.7 mmol/L (8-16); CALCIUM 7.2 mg/dL (8.4-10.2); CREATININE, SERUM 0.69 mg/dL (0.72-1.25); POTASSIUM 3.7 mmol/L (3.5-5.1)
[2021-07-30] MEDS: ENOXAPARIN 30 MG/0.3 ML SYR SC SCH ×2 (05:58→20:16)
[2021-07-30] MEDS: BENZONATATE 100 MG CAP PO SCH ×3 (05:58→21:02)
[2021-07-30] MEDS: FENTANYL 2000MCG/NS 250 250 ML IV PRN ×2 (05:59→16:41)
[2021-07-30] MEDS: MIDAZOLAM HCL 5MG/ML 10ML VIAL 100 ML IV PRN ×2 (06:04→23:14)
[2021-07-30 08:03] LABS: ABG HCO3 27 mmol/L (22-26); ABG PCO2 47 mmHg (35-45); ABG PH 7.37 (7.35-7.45); ABG PO2 84 mmHg (80-105); ABG TCO2 28
[2021-07-30] MEDS ORDERED: POTASSIUM CHLORIDE 20MEQ/15ML UDC NG NR (08:45)
[2021-07-30] MEDS ORDERED: MAGNESIUM SULFATE 2GM/50ML 50 ML IV ONE (08:45)
[2021-07-30] MEDS: ASPIRIN 81 MG CHEW TAB PO SCH (08:53)
[2021-07-30] MEDS: DONEPEZIL HCL 5 MG TAB PO SCH ×2 (08:53→16:30)
[2021-07-30] MEDS: ASCORBIC ACID 500 MG TAB PO SCH ×2 (08:54→16:30)
[2021-07-30] MEDS: GABAPENTIN 300 MG CAP PO SCH ×2 (08:54→16:30)
[2021-07-30] MEDS: ZINC SULFATE 50 MG CAP PO SCH (08:54)
[2021-07-30] MEDS: MULTIVITAMINS/MINERALS TAB PO SCH (08:54)
[2021-07-30] MEDS ORDERED: AMIODARONE HCL 200 MG TAB PO SCH (09:00)
[2021-07-30] MEDS: ROCURONIUM 1250MG/NS 250 250 ML IV PRN (09:11)
[2021-07-30] MEDS ORDERED: KCL 20 MEQ PACKET/ ORAL SOLN NG NR ×2 (09:15)
[2021-07-30] MEDS ORDERED: BISACODYL 10 MG SUPP PR NR (10:00)
[2021-07-30] MEDS ORDERED: LACTULOSE SYRUP 20 GM/30 ML UDC PO PRN (10:00)
[2021-07-30] MEDS ORDERED: BISACODYL 10 MG SUPP PR PRN (10:00)
[2021-07-30] MEDS: SENNOSIDES 8.6 MG TAB PO SCH ×2 (10:23→16:41)
[2021-07-30] MEDS ORDERED: FUROSEMIDE INJ 10 MG/ML 2 ML VIAL IV ONE (15:45)
[2021-07-30] MEDS: DEXTROSE 5% 1,000 ML IV SCH (16:40)
[2021-07-30] MEDS: NOREPINEPHRINE 8 MG/D5W 250 ML 250 ML IV SCH (20:16)
[2021-07-30] MEDS: MEMANTINE 10 MG TAB PO SCH (20:49)
[2021-07-30] MEDS: TAMSULOSIN HCL 0.4 MG CAP PO SCH (20:49)
[2021-07-30] MEDS: AMIODARONE HCL 200 MG TAB PO SCH (20:57)
[2021-07-31] VITALS (26 sets, daily range): BP systolic 88–103; BP diastolic 64–74
[2021-07-31] MEDS: FENTANYL 2000MCG/NS 250 250 ML IV PRN ×3 (01:34→22:59)
[2021-07-31] MEDS: MIDAZOLAM HCL 5MG/ML 10ML VIAL 100 ML IV PRN ×3 (05:27→19:02)
[2021-07-31] MEDS: DEXTROSE 5% 1,000 ML IV SCH (05:44)
[2021-07-31] MEDS: ENOXAPARIN 30 MG/0.3 ML SYR SC SCH ×2 (05:44→17:25)
[2021-07-31] MEDS: BENZONATATE 100 MG CAP PO SCH ×3 (05:44→21:22)
[2021-07-31] MEDS: PIPERACILLIN/TAZOBACTAM 3.375 GM in SODIUM CHLORIDE 0.9% 50ML 50 ML IV SCH ×3 (05:44→17:25)
[2021-07-31 05:49] LABS: BASOPHILS % 0.1 % (0.0-1.0); EOSINOPHILS # (AUTO) 0.5 (0.0-0.4); EOSINOPHILS % 3.6 % (0.0-6.0); HEMATOCRIT 43.3 % (38.2-49.6); HEMOGLOBIN 13.6 g/dL (14.0-18.0); LYMPHOCYTES # (AUTO) 0.6 (1.0-3.2); LYMPHOCYTES % 4.4 % (18.0-39.1); MEAN CORPUSCULAR HGB CONC 31.4 g/dL (31-35); MEAN CORPUSCULAR VOLUME 95.6 fL (81-99); MONOCYTES # (AUTO) 0.4 (0.2-0.8); MONOCYTES % 2.8 % (4.4-11.3); NEUTROPHILS # (AUTO) 12.7 (2.1-6.9); NEUTROPHILS % 88.1 % (38.7-80.0); PLATELET COUNT 211 x10e3/uL (140-360); RED BLOOD COUNT 4.53 x10e6/uL (4.3-5.7); RED CELL DISTRIBUTION WIDTH 14.7 % (11.7-14.4)
[2021-07-31 06:12] LABS: ALBUMIN 1.4 g/dL (3.5-5.0); ALBUMIN/GLOBULIN RATIO 0.4 (0.8-2.0); CALCIUM 7.5 mg/dL (8.4-10.2); CREATININE, SERUM 0.79 mg/dL (0.72-1.25)
[2021-07-31 07:44] LABS: ABG HCO3 26 mmol/L (22-26); ABG PCO2 44 mmHg (35-45); ABG PH 7.38 (7.35-7.45); ABG PO2 82 mmHg (80-105); ABG TCO2 28
[2021-07-31] MEDS: GABAPENTIN 300 MG CAP PO SCH ×2 (08:23→13:53)
[2021-07-31] MEDS: ZINC SULFATE 50 MG CAP PO SCH (08:25)
[2021-07-31] MEDS: SENNOSIDES 8.6 MG TAB PO SCH ×2 (08:25→16:16)
[2021-07-31] MEDS: DONEPEZIL HCL 5 MG TAB PO SCH ×2 (08:25→13:53)
[2021-07-31] MEDS: MULTIVITAMINS/MINERALS TAB PO SCH (08:25)
[2021-07-31] MEDS: ASPIRIN 81 MG CHEW TAB PO SCH (08:25)
[2021-07-31] MEDS: ASCORBIC ACID 500 MG TAB PO SCH ×2 (08:25→16:16)
[2021-07-31] MEDS: AMIODARONE HCL 200 MG TAB PO SCH ×2 (08:25→21:22)
[2021-07-31] MEDS: HYDROCHLOROTHIAZIDE 25 MG TAB PO SCH (08:40)
[2021-07-31 08:56] LABS: EOSINOPHILS % (MANUAL) 1 % (0-7); LYMPHOCYTES % (MANUAL) 4 % (19-48); MONOCYTES % (MANUAL) 1 % (3.4-9.0); NEUTROPHILS % (MANUAL) 94 % (40-74); PLATELET ESTIMATE ADEQUATE; PLATELET MORPHOLOGY COMMENT NORMAL; RBC MORPHOLOGY COMMENT NORMAL
[2021-07-31] MEDS ORDERED: FUROSEMIDE INJ 10 MG/ML 2 ML VIAL IV SCH (09:00)
[2021-07-31] MEDS: NOREPINEPHRINE 8 MG/D5W 250 ML 250 ML IV SCH (10:02)
[2021-07-31] MEDS: ROCURONIUM 1250MG/NS 250 250 ML IV PRN (11:01)
[2021-07-31] MEDS ORDERED: FUROSEMIDE INJ 10 MG/ML 2 ML VIAL IV NR (14:15)
[2021-07-31] MEDS: MEMANTINE 10 MG TAB PO SCH (21:22)
[2021-07-31] MEDS: TAMSULOSIN HCL 0.4 MG CAP PO SCH (21:22)
[2021-08-01] VITALS (50 sets, daily range): BP systolic 77–111; BP diastolic 46–86
[2021-08-01] MEDS: PIPERACILLIN/TAZOBACTAM 3.375 GM in SODIUM CHLORIDE 0.9% 50ML 50 ML IV SCH ×4 (02:07→17:15)
[2021-08-01] MEDS: MIDAZOLAM HCL 5MG/ML 10ML VIAL 100 ML IV PRN ×3 (02:08→16:33)
[2021-08-01 05:13] LABS: BASOPHILS % 0.2 % (0.0-1.0); EOSINOPHILS # (AUTO) 0.6 (0.0-0.4); EOSINOPHILS % 5.1 % (0.0-6.0); HEMATOCRIT 41.6 % (38.2-49.6); LYMPHOCYTES # (AUTO) 0.7 (1.0-3.2); LYMPHOCYTES % 5.5 % (18.0-39.1); MEAN CORPUSCULAR HEMOGLOBIN 30.1 pg (28-32); MEAN CORPUSCULAR HGB CONC 31.3 g/dL (31-35); MEAN CORPUSCULAR VOLUME 96.3 fL (81-99); MONOCYTES # (AUTO) 0.4 (0.2-0.8); MONOCYTES % 3.1 % (4.4-11.3); NEUTROPHILS # (AUTO) 10.1 (2.1-6.9); NEUTROPHILS % 84.7 % (38.7-80.0); PLATELET COUNT 207 x10e3/uL (140-360); RED BLOOD COUNT 4.32 x10e6/uL (4.3-5.7); RED CELL DISTRIBUTION WIDTH 14.5 % (11.7-14.4)
[2021-08-01 05:44] LABS: ANION GAP 15.3 mmol/L (8-16); CALCIUM 7.7 mg/dL (8.4-10.2); CREATININE, SERUM 0.8 mg/dL (0.72-1.25); MAGNESIUM 1.8 MG/DL (1.3-2.1); POTASSIUM 3.3 mmol/L (3.5-5.1)
[2021-08-01] MEDS: BENZONATATE 100 MG CAP PO SCH (06:22)
[2021-08-01] MEDS: ENOXAPARIN 30 MG/0.3 ML SYR SC SCH ×2 (06:22→17:15)
[2021-08-01] MEDS: DONEPEZIL HCL 5 MG TAB PO SCH ×2 (07:53→16:34)
[2021-08-01] MEDS: GABAPENTIN 300 MG CAP PO SCH ×2 (07:54→15:26)
[2021-08-01] MEDS ORDERED: DILTIAZEM HCL 5 MG/ML 5 ML VIAL IV STA (08:14)
[2021-08-01] MEDS ORDERED: DILTIAZEM HCL IV SOLN 125 MG in SODIUM CHLORIDE 0.9% 100 ML IV SCH (08:15)
[2021-08-01] MEDS: POTASSIUM CHLORIDE 20MEQ/100ML 100 ML IV SCH ×2 (08:24→09:36)
[2021-08-01] MEDS ORDERED: DILTIAZEM HCL VIAL 5 ML ONE (08:26)
[2021-08-01 08:28] LABS: ABG HCO3 30 mmol/L (22-26); ABG PCO2 47 mmHg (35-45); ABG PH 7.41 (7.35-7.45); ABG PO2 62 mmHg (80-105); ABG TCO2 31
[2021-08-01] MEDS: ASCORBIC ACID 500 MG TAB PO SCH ×2 (08:47→16:34)
[2021-08-01] MEDS: MULTIVITAMINS/MINERALS TAB PO SCH (08:47)
[2021-08-01] MEDS: ZINC SULFATE 50 MG CAP PO SCH (08:47)
[2021-08-01] MEDS: FENTANYL 2000MCG/NS 250 250 ML IV PRN (08:47)
[2021-08-01] MEDS: AMIODARONE HCL 200 MG TAB PO SCH ×2 (08:47→22:25)
[2021-08-01] MEDS: ASPIRIN 81 MG CHEW TAB PO SCH (08:47)
[2021-08-01] MEDS: HYDROCHLOROTHIAZIDE 25 MG TAB PO SCH (08:47)
[2021-08-01] MEDS: SENNOSIDES 8.6 MG TAB PO SCH ×2 (08:47→16:34)
[2021-08-01] MEDS: ROCURONIUM 1250MG/NS 250 250 ML IV PRN (08:50)
[2021-08-01] MEDS: FUROSEMIDE INJ 10 MG/ML 4 ML VIAL IV SCH (09:36)
[2021-08-01] MEDS ORDERED: SODIUM CHLORIDE 0.9% 1000ML 1,000 ML ONE (10:27)
[2021-08-01] MEDS: NOREPINEPHRINE 8 MG/D5W 250 ML 250 ML IV SCH (15:27)
[2021-08-01] MEDS ORDERED: ADENOSINE 6 MG/2 ML VIAL IV PRN (16:30)
[2021-08-01] MEDS: MEMANTINE 10 MG TAB PO SCH (22:25)
[2021-08-01] MEDS: TAMSULOSIN HCL 0.4 MG CAP PO SCH (22:25)
[2021-08-02] VITALS (22 sets, daily range): BP systolic 96–128; BP diastolic 50–66
[2021-08-02] MEDS: PIPERACILLIN/TAZOBACTAM 3.375 GM in SODIUM CHLORIDE 0.9% 50ML 50 ML IV SCH ×4 (00:40→17:37)
[2021-08-02] MEDS: ENOXAPARIN 30 MG/0.3 ML SYR SC SCH ×2 (06:01→17:37)
[2021-08-02 07:23] LABS: ALBUMIN 1.3 g/dL (3.5-5.0); ALBUMIN/GLOBULIN RATIO 0.3 (0.8-2.0); ANION GAP 13.4 mmol/L (8-16); CALCIUM 7.7 mg/dL (8.4-10.2); CREATININE, SERUM 0.85 mg/dL (0.72-1.25); POTASSIUM 3.4 mmol/L (3.5-5.1)
[2021-08-02] MEDS: FUROSEMIDE INJ 10 MG/ML 4 ML VIAL IV SCH (08:45)
[2021-08-02] MEDS: KCL 20 MEQ PACKET/ ORAL SOLN NG SCH (08:45)
[2021-08-02] MEDS ORDERED: PHENYLEPHRINE 10MG/ML VIAL 40 MG in DEXTROSE 5% 250ML 250 ML IV PRN (08:45)
[2021-08-02] MEDS: ASPIRIN 81 MG CHEW TAB PO SCH (08:46)
[2021-08-02] MEDS: GABAPENTIN 300 MG CAP PO SCH ×2 (08:46→17:37)
[2021-08-02] MEDS: ASCORBIC ACID 500 MG TAB PO SCH ×2 (08:46→17:37)
[2021-08-02] MEDS: SENNOSIDES 8.6 MG TAB PO SCH ×2 (08:46→17:37)
[2021-08-02] MEDS: AMIODARONE HCL 200 MG TAB PO SCH ×2 (08:46→21:23)
[2021-08-02] MEDS: HYDROCHLOROTHIAZIDE 25 MG TAB PO SCH (08:46)
[2021-08-02] MEDS: DONEPEZIL HCL 5 MG TAB PO SCH ×2 (08:46→17:37)
[2021-08-02] MEDS: ZINC SULFATE 50 MG CAP PO SCH (08:46)
[2021-08-02] MEDS: MULTIVITAMINS/MINERALS TAB PO SCH (08:46)
[2021-08-02 08:56] LABS: HEMOGLOBIN 13.1 g/dL (14.0-18.0); LYMPHOCYTES % 6.9 % (18.0-39.1); MEAN CORPUSCULAR HEMOGLOBIN 31.2 pg (28-32); MEAN CORPUSCULAR HGB CONC 32.8 g/dL (31-35); MEAN CORPUSCULAR VOLUME 95.2 fL (81-99); NEUTROPHILS % 89.7 % (38.7-80.0); PLATELET COUNT 229 x10e3/uL (140-360); RED BLOOD COUNT 4.2 x10e6/uL (4.3-5.7); RED CELL DISTRIBUTION WIDTH 13.4 % (11.7-14.4)
[2021-08-02] MEDS ORDERED: POTASSIUM CHLORIDE 20 MEQ TAB CR PO SCH (09:00)
[2021-08-02 09:06] LABS: ABG HCO3 31 mmol/L (22-26); ABG PCO2 53 mmHg (35-45); ABG PH 7.37 (7.35-7.45); ABG PO2 54 mmHg (80-105); ABG TCO2 32
[2021-08-02] MEDS ORDERED: MAGNESIUM SULFATE 2GM/50ML 50 ML IV ONE (09:30)
[2021-08-02] MEDS: ALBUMIN 25% 25GM 100ML 0.25 GM/ML BTL IV SCH ×3 (10:08→21:24)
[2021-08-02] MEDS: MIDAZOLAM HCL 5MG/ML 10ML VIAL 100 ML IV PRN ×2 (14:00→21:07)
[2021-08-02] MEDS ORDERED: POTASSIUM CHLORIDE 10MEQ EA PO ONE (15:35)
[2021-08-02] MEDS: NOREPINEPHRINE 8 MG/D5W 250 ML 250 ML IV SCH (17:00)
[2021-08-02] MEDS: FENTANYL 2000MCG/NS 250 250 ML IV PRN (17:36)
[2021-08-02] MEDS ORDERED: FUROSEMIDE INJ 10 MG/ML 4 ML VIAL IV ONE (18:00)
[2021-08-02] MEDS: TAMSULOSIN HCL 0.4 MG CAP PO SCH (21:24)
[2021-08-02] MEDS: MEMANTINE 10 MG TAB PO SCH (21:24)
[2021-08-03] VITALS (25 sets, daily range): BP systolic 85–149; BP diastolic 42–66
[2021-08-03] MEDS: PIPERACILLIN/TAZOBACTAM 3.375 GM in SODIUM CHLORIDE 0.9% 50ML 50 ML IV SCH ×4 (00:13→17:44)
[2021-08-03] MEDS: FENTANYL 2000MCG/NS 250 250 ML IV PRN ×2 (00:16→10:33)
[2021-08-03] MEDS: MIDAZOLAM HCL 5MG/ML 10ML VIAL 100 ML IV PRN ×3 (03:37→18:00)
[2021-08-03] MEDS: ALBUMIN 25% 25GM 100ML 0.25 GM/ML BTL IV SCH ×3 (06:06→21:58)
[2021-08-03] MEDS: ENOXAPARIN 30 MG/0.3 ML SYR SC SCH ×2 (06:07→17:44)
[2021-08-03 06:14] LABS: BASOPHILS % 0.3 % (0.0-1.0); EOSINOPHILS # (AUTO) 0.4 (0.0-0.4); EOSINOPHILS % 4.8 % (0.0-6.0); HEMATOCRIT 36.6 % (38.2-49.6); HEMOGLOBIN 11.7 g/dL (14.0-18.0); LYMPHOCYTES # (AUTO) 0.4 (1.0-3.2); LYMPHOCYTES % 4.6 % (18.0-39.1); MEAN CORPUSCULAR HEMOGLOBIN 30.4 pg (28-32); MEAN CORPUSCULAR VOLUME 95.1 fL (81-99); MONOCYTES # (AUTO) 0.4 (0.2-0.8); MONOCYTES % 3.9 % (4.4-11.3); NEUTROPHILS # (AUTO) 7.5 (2.1-6.9); NEUTROPHILS % 84.2 % (38.7-80.0); PLATELET COUNT 183 x10e3/uL (140-360); RED BLOOD COUNT 3.85 x10e6/uL (4.3-5.7); RED CELL DISTRIBUTION WIDTH 14.6 % (11.7-14.4)
[2021-08-03 07:03] LABS: ALBUMIN 2.3 g/dL (3.5-5.0); ALBUMIN/GLOBULIN RATIO 0.6 (0.8-2.0); ANION GAP 18.1 mmol/L (8-16); CALCIUM 8.4 mg/dL (8.4-10.2); CREATININE, SERUM 1.15 mg/dL (0.72-1.25); POTASSIUM 3.1 mmol/L (3.5-5.1)
[2021-08-03 08:13] LABS: ABG HCO3 35 mmol/L (22-26); ABG PCO2 61 mmHg (35-45); ABG PH 7.37 (7.35-7.45); ABG PO2 42 mmHg (80-105); ABG TCO2 37
[2021-08-03] MEDS: DONEPEZIL HCL 5 MG TAB PO SCH ×2 (08:31→16:52)
[2021-08-03] MEDS: FUROSEMIDE INJ 10 MG/ML 4 ML VIAL IV SCH (08:31)
[2021-08-03] MEDS: KCL 20 MEQ PACKET/ ORAL SOLN NG SCH (08:31)
[2021-08-03] MEDS: ASPIRIN 81 MG CHEW TAB PO SCH (08:31)
[2021-08-03] MEDS: GABAPENTIN 300 MG CAP PO SCH ×2 (08:32→16:52)
[2021-08-03] MEDS: ASCORBIC ACID 500 MG TAB PO SCH ×2 (08:32→16:52)
[2021-08-03] MEDS: AMIODARONE HCL 200 MG TAB PO SCH ×2 (08:32→21:58)
[2021-08-03] MEDS: SENNOSIDES 8.6 MG TAB PO SCH ×2 (08:32→16:52)
[2021-08-03] MEDS: MULTIVITAMINS/MINERALS TAB PO SCH (08:32)
[2021-08-03] MEDS: ZINC SULFATE 50 MG CAP PO SCH (08:32)
[2021-08-03] MEDS: HYDROCHLOROTHIAZIDE 25 MG TAB PO SCH (08:32)
[2021-08-03] MEDS ORDERED: POTASSIUM CHLORIDE 20MEQ/100ML 200 ML IV ONE (11:45)
[2021-08-03] MEDS ORDERED: FUROSEMIDE INJ 100 MG in SODIUM CHLORIDE 0.9% 100 ML 90 ML IV SCH (12:00)
[2021-08-03] MEDS: NOREPINEPHRINE 8 MG/D5W 250 ML 250 ML IV SCH ×2 (17:00→21:58)
[2021-08-03] MEDS: ROCURONIUM 1250MG/NS 250 250 ML IV PRN (18:00)
[2021-08-03] MEDS ORDERED: SODIUM CHLORIDE 0.9% 100 ML ONE (21:47)
[2021-08-03] MEDS ORDERED: FUROSEMIDE INJ 10 MG/ML 10 ML VIAL ONE (21:47)
[2021-08-03] MEDS: MEMANTINE 10 MG TAB PO SCH (21:58)
[2021-08-03] MEDS: TAMSULOSIN HCL 0.4 MG CAP PO SCH (21:58)
[2021-08-03] MEDS ORDERED: ALBUMIN 25% 12.5GM 0.25 GM/ML BTL IV ONE (23:30)
[2021-08-04] VITALS (19 sets, daily range): BP systolic 58–91; BP diastolic 44–57
[2021-08-04 00:11] LABS: ABG HCO3 37 mmol/L (22-26); ABG PCO2 83 mmHg (35-45); ABG PO2 30 mmHg (80-105)
[2021-08-04 00:12] LABS: ABG TCO2 39
[2021-08-04 00:14] LABS: ABG PH 7.26 (7.35-7.45)
[2021-08-04] MEDS: VASOPRESSIN 60 UNIT in DEXTROSE 5% 50ML 57 ML IV SCH ×2 (04:17→08:17)
[2021-08-04 06:22] LABS: BASOPHILS # (AUTO) 0.1 (0.0-0.1); BASOPHILS % 0.5 % (0.0-1.0); EOSINOPHILS % 0.1 % (0.0-6.0); HEMATOCRIT 39.7 % (38.2-49.6); HEMOGLOBIN 11.4 g/dL (14.0-18.0); LYMPHOCYTES # (AUTO) 0.7 (1.0-3.2); LYMPHOCYTES % 4.5 % (18.0-39.1); MEAN CORPUSCULAR HEMOGLOBIN 30.3 pg (28-32); MEAN CORPUSCULAR HGB CONC 28.7 g/dL (31-35); MONOCYTES # (AUTO) 0.7 (0.2-0.8); MONOCYTES % 4.7 % (4.4-11.3); NEUTROPHILS # (AUTO) 11.7 (2.1-6.9); NEUTROPHILS % 81.4 % (38.7-80.0); PLATELET COUNT 278 x10e3/uL (140-360); RED BLOOD COUNT 3.76 x10e6/uL (4.3-5.7); RED CELL DISTRIBUTION WIDTH 15.4 % (11.7-14.4)
[2021-08-04] MEDS: ALBUMIN 25% 25GM 100ML 0.25 GM/ML BTL IV SCH ×2 (06:30→14:02)
[2021-08-04] MEDS: PIPERACILLIN/TAZOBACTAM 3.375 GM in SODIUM CHLORIDE 0.9% 50ML 50 ML IV SCH ×3 (06:30)
[2021-08-04] MEDS: ENOXAPARIN 30 MG/0.3 ML SYR SC SCH (06:30)
[2021-08-04 06:40] LABS: MEAN CORPUSCULAR VOLUME 105.6 fL (81-99)
[2021-08-04 06:44] LABS: ALBUMIN 3.6 g/dL (3.5-5.0); ALBUMIN/GLOBULIN RATIO 1.2 (0.8-2.0); ANION GAP 31.8 mmol/L (8-16); CALCIUM 8.3 mg/dL (8.4-10.2); CREATININE, SERUM 2.5 mg/dL (0.72-1.25); POTASSIUM 4.8 mmol/L (3.5-5.1)
[2021-08-04] MEDS: MIDAZOLAM HCL 5MG/ML 10ML VIAL 100 ML IV PRN ×2 (07:30→14:24)
[2021-08-04] MEDS: FENTANYL 2000MCG/NS 250 250 ML IV PRN (07:30)
[2021-08-04] MEDS ORDERED: DEXTROSE 5% IV ONE (07:31)
[2021-08-04] MEDS: KCL 20 MEQ PACKET/ ORAL SOLN NG SCH ×2 (07:50→11:55)
[2021-08-04] MEDS: DONEPEZIL HCL 5 MG TAB PO SCH ×2 (07:50→17:00)
[2021-08-04] MEDS: ASPIRIN 81 MG CHEW TAB PO SCH (07:50)
[2021-08-04] MEDS: SENNOSIDES 8.6 MG TAB PO SCH ×2 (07:51→17:00)
[2021-08-04] MEDS: MULTIVITAMINS/MINERALS TAB PO SCH (07:51)
[2021-08-04] MEDS: GABAPENTIN 300 MG CAP PO SCH ×2 (07:51→17:00)
[2021-08-04] MEDS: AMIODARONE HCL 200 MG TAB PO SCH (07:51)
[2021-08-04] MEDS: HYDROCHLOROTHIAZIDE 25 MG TAB PO SCH (07:51)
[2021-08-04] MEDS: ZINC SULFATE 50 MG CAP PO SCH (07:51)
[2021-08-04] MEDS: ASCORBIC ACID 500 MG TAB PO SCH ×2 (07:51→17:00)
[2021-08-04 08:39] LABS: ABG HCO3 24 mmol/L (22-26); ABG PCO2 88 mmHg (35-45); ABG PH 7.05 (7.35-7.45); ABG PO2 39 mmHg (80-105)
[2021-08-04 08:40] LABS: ABG TCO2 27
[2021-08-04] MEDS ORDERED: SODIUM BICARBONATE 8.4% INJ 50 ML SYR IV ONE (08:40)
[2021-08-04] MEDS ORDERED: SODIUM BICARBONATE 8.4% SYRING 100 ML ONE (08:43)
[2021-08-04] MEDS: PHENYLEPHRINE 10MG/ML VIAL 40 MG in DEXTROSE 5% 250ML 246 ML IV SCH ×2 (09:04→14:23)
[2021-08-04 09:51] LABS: ANISOCYTOSIS SLIGHT; BAND NEUTROPHILS % (MANUAL) 2 %; EOSINOPHILS % (MANUAL) 1 % (0-7); LYMPHOCYTES % (MANUAL) 2 % (19-48); MONOCYTES % (MANUAL) 4 % (3.4-9.0); NEUTROPHILS % (MANUAL) 91 % (40-74); NUCLEATED RED BLOOD CELLS 2; PLATELET ESTIMATE ADEQUATE; PLATELET MORPHOLOGY COMMENT NORMAL; RBC MORPHOLOGY COMMENT ABNORMAL
[2021-08-04 10:26] LABS: ALBUMIN 3.8 g/dL (3.5-5.0); ALBUMIN/GLOBULIN RATIO 1.2 (0.8-2.0); ANION GAP 36.4 mmol/L (8-16); CALCIUM 8.2 mg/dL (8.4-10.2); CREATININE, SERUM 2.68 mg/dL (0.72-1.25); POTASSIUM 5.4 mmol/L (3.5-5.1)
[2021-08-04] MEDS: NOREPINEPHRINE 8 MG/D5W 250 ML 250 ML IV SCH ×2 (11:00→14:03)
[2021-08-05] MEDS ORDERED: ENOXAPARIN 30 MG/0.3 ML SYR SC SCH (06:00)
== END 2021-08-04 17:40 | disposition expired | DRG 207 ==
LOC: ER 12:05 → ERHOLD 14:12 → MED/SURG3 21:00 → ICU 07-16 16:27 → IMCU 07-20 17:50 → ICU 07-24 07:26
PROVIDERS: ADMIT Internal Medicine; ATTEND Internal Medicine
PROC: 8E0ZXY6 Isolation (ICD-10-PCS; 2021-07-15)
PROC: 5A0935A Assistance with Respiratory Ventilation, Less than 24 Consecutive Hours, High Flow/Velocity Cannula (ICD-10-PCS; 2021-07-15)
PROC: 02HV33Z Insertion of Infusion Device into Superior Vena Cava, Percutaneous Approach (ICD-10-PCS; 2021-07-15)
PROC: XW043E5 Introduction of Remdesivir Anti-infective into Central Vein, Percutaneous Approach, New Technology Group 5 (ICD-10-PCS; 2021-07-15)
PROC: 02HV33Z Insertion of Infusion Device into Superior Vena Cava, Percutaneous Approach (ICD-10-PCS; principal; 2021-07-16)
PROC: 5A1955Z Respiratory Ventilation, Greater than 96 Consecutive Hours (ICD-10-PCS; 2021-07-29)
PROC: 0BH18EZ Insertion of Endotracheal Airway into Trachea, Via Natural or Artificial Opening Endoscopic (ICD-10-PCS; 2021-07-29)
DX: U07.1 COVID-19 (principal); A41.89 Other specified sepsis; J12.82 Pneumonia due to coronavirus disease 2019; G93.41 Metabolic encephalopathy; R65.21 Severe sepsis with septic shock; J80 Acute respiratory distress syndrome; E87.0 Hyperosmolality and hypernatremia; I47.2 Ventricular tachycardia; B19.9 Unspecified viral hepatitis without hepatic coma; N17.9 Acute kidney failure, unspecified; F02.81 Dementia in other diseases classified elsewhere, unspecified severity, with behavioral disturbance; F05 Delirium due to known physiological condition; N41.9 Inflammatory disease of prostate, unspecified; R39.15 Urgency of urination; N40.0 Benign prostatic hyperplasia without lower urinary tract symptoms; K21.9 Gastro-esophageal reflux disease without esophagitis; E87.6 Hypokalemia; J62.8 Pneumoconiosis due to other dust containing silica; E11.40 Type 2 diabetes mellitus with diabetic neuropathy, unspecified; Z79.899 Other long term (current) drug therapy; Z79.4 Long term (current) use of insulin; Z20.822 Contact with and (suspected) exposure to COVID-19; I48.0 Paroxysmal atrial fibrillation; Z79.01 Long term (current) use of anticoagulants; E66.9 Obesity, unspecified; Z68.32 Body mass index [BMI] 32.0-32.9, adult; G30.9 Alzheimer's disease, unspecified; G47.33 Obstructive sleep apnea (adult) (pediatric); K52.9 Noninfective gastroenteritis and colitis, unspecified
CPT/HCPCS: 36415; 36569; 36600; 71045; 74018; 80048; 80053; 81001; 82728; 82805; 82948; 83605; 83735; 85025; 86140; 87040; 87086; 93005; 93306; 94002; 94003; 94660; 97139; 99251; 99284; J0330; J0456; J0696; J1100; J1650; J1940; J2250; J2370; J2543; J3475; J3480; J7030; J7050; J7070; J7121; P9047; U0002